=== PATIENT | male | born 1965 | race Two or more races ===

== ENCOUNTER 2019-02-02 18:24 | Inpatient (IN) | payer OTHER ==
[~2019-02-02] VITALS: Ht 170.2 cm; Wt 81.3 kg
--- NOTE | 2019-02-02 18:25 | NUR ---
ED Nurse Note: pt brought in by SOLANGE for c/O testicle pain. pt stated he was at [facility] this morning and was prescribed levaquin. however the pain got worse and worse. the pain is to his groin area, testicles, and radiates to the abdomen. pt is alert x4. ambulatory. \
[2019-02-02] MEDS ORDERED: Sodium Chloride 2,200 ML IVLG ONE (18:30)
[2019-02-02] MEDS ORDERED: Ketorolac 30mg Inj IV ONE (18:30)
--- NOTE | 2019-02-02 18:43 | NUR ---
ED Nurse Note: Urine sample sent down
--- NOTE | 2019-02-02 18:43 | NUR ---
ED Nurse Note: blood sent to lab
[2019-02-02] MEDS ORDERED: NORVASC10 MG ORAL (18:52)
[2019-02-02] MEDS ORDERED: FINASTERIDE5 MG ORAL (18:52)
[2019-02-02] MEDS ORDERED: LEVOFLOXACIN500 MG ORAL (18:52)
[2019-02-02] MEDS ORDERED: DIURIL25 MG ORAL (18:52)
[2019-02-02] MEDS ORDERED: FLOMAX0.4 MG ORAL (18:52)
[2019-02-02] MEDS ORDERED: ASPIRIN-LOW81 MG ORAL (18:52)
[2019-02-02] MEDS ORDERED: IBUPROFEN600 MG ORAL (18:52)
--- NOTE | 2019-02-02 18:58 | NUR ---
ED Nurse Note: uotrasound at bed side
--- NOTE | 2019-02-02 18:59 | Emergency Room Report ---
History of Present Illness General Chief Complaint: Abdominal Pain Source: Patient Present Illness HPI Patient was discharged from [facility] today with a diagnosis of epididymitis orchitis. He was seen for about 4 hours in the emergency department. He was told to seek help if he had fever. He started having chills and fever and increased pain in his testicle. He called paramedics. 2 months ago he was admitted to the hospital for similar condition. He alleges he never saw a urologist. He had a diagnosis of orchitis/epididymitis at that time. He was treated with antibiotics and improved. Until a few days ago he was asymptomatic. Now he complains of swelling, discoloration and severe pain in his left testicle. He also has rectal pain. He rates the pain in his testicle is 10/10. No imaging studies were done today. Patient is diabetic. Patient is hypertensive. Patient has high cholesterol. He received Tylenol, amlodipine, aspirin, atorvastatin, benzoyl peroxide, clindamycin, clotrimazole, direct diclofenac, finasteride, hydrochlorothiazide, omeprazole, sulfamethoxazole and Flomax He was discharged on Levaquin. No sore throat, chest pain, palpitations, nausea, vomiting, diarrhea, dysuria, shortness of breath, joint pain, rashes, depression, anxiety, visual changes, headache. Allergies: Coded Allergies: No Known Allergies (Unverified , 02/02/19) Patient History Past Medical History: see triage record Social History: Denies: smoking, alcohol use, drug use Social History Narrative Reviewed Nursing Documentation: PMH: Agreed; PSxH: Agreed Review of Systems All Other Systems: negative except mentioned in HPI Physical Exam Vital Signs Date Time Temp Pulse Resp B/P (MAP) Pulse Ox O2 Delivery O2 Flow Rate FiO2 02/02/19 18:19 98.4 92 17 153/100 (117) 98 Room Air Sp02 EP Interpretation: reviewed, normal General Appearance: well appearing, GCS 15, non-toxic, mild distress - With pain Head: normocephalic Eyes: bilateral eye normal inspection, bilateral eye PERRL, bilateral eye EOMI ENT: moist mucus membranes Neck: supple Respiratory: chest non-tender, lungs clear, normal breath sounds Cardiovascular #1: regular rate, rhythm Cardiovascular #2: 2+ radial (R) Gastrointestinal: normal inspection, normal bowel sounds, non tender, no mass, non-distended Genitourinary: no CVA tenderness, other - Swollen and erythematous left testicle with tenderness to palpation. No peritoneal bogginess. Musculoskeletal: back normal, normal range of motion Neurologic: alert, oriented x3, grossly normal Psychiatric: mood/affect normal - In pain Skin: warm/dry - Feels febrile, other - See genitals Medical Decision Making Diagnostic Impression: Primary Impression: Sepsis Qualified Codes: A41.9 - Sepsis, unspecified organism Additional Impressions: Orchitis Epididymitis Diabetes Qualified Codes: E11.69 - Type 2 diabetes mellitus with other specified complication Hypertension Qualified Codes: I10 - Essential (primary) hypertension ER Course Presents with left testicular pain fevers and chills. Differential includes epididymitis, torsion, orchitis, mumps, sepsis, UTI, prostatitis, Surjit's gangrene amongst others. Patient will be evaluated with EKG, ultrasound of the testicle chest x-ray and labs. The patient will be treated with IV hydration, Tylenol and Toradol. EKG without injury. White count elevated. Initial lactate elevated. Urinalysis clear. Ultrasound reveals bilateral hydroceles. No evidence of inflammation. Sepsis re-eval 19:25 - elevated WBC and lactate. Presume testicular source. Cefepime and levaquin ordered. Cap fill good. Improved pain with dilaudid. Patient still with pain and Dilaudid repeated. Discussion with patient and family regarding findings. Patient evaluated by urologist Dr. Trevino. Admitted for observation Dr. Ball. Laboratory Tests Test 02/02/19 18:35 02/02/19 20:25 White Blood Count 17.5 K/UL (4.8-10.8) H Red Blood Count 4.77 M/UL (4.70-6.10) Hemoglobin 14.7 G/DL (14.2-18.0) Hematocrit 42.1 % (42.0-52.0) Mean Corpuscular Volume 88 FL (80-99) Mean Corpuscular Hemoglobin 30.8 PG (27.0-31.0) Mean Corpuscular Hemoglobin Concent 34.9 G/DL (32.0-36.0) Red Cell Distribution Width 11.1 % (11.6-14.8) L Platelet Count 310 K/UL (150-450) Mean Platelet Volume 6.2 FL (6.5-10.1) L Neutrophils (%) (Auto) 78.7 % (45.0-75.0) H Lymphocytes (%) (Auto) 13.7 % (20.0-45.0) L Monocytes (%) (Auto) 6.8 % (1.0-10.0) Eosinophils (%) (Auto) 0.1 % (0.0-3.0) Basophils (%) (Auto) 0.7 % (0.0-2.0) Prothrombin Time 10.6 SEC (9.30-11.50) Prothrombin Time INR 1.0 (0.9-1.1) PTT 26 SEC (23-33) Urine Color Pale yellow Urine Appearance Clear Urine pH 8 (4.5-8.0) Urine Specific [place] 1.010 (1.005-1.035) Urine Protein Negative (NEGATIVE) Urine Glucose (UA) Negative (NEGATIVE) Urine Ketones Negative (NEGATIVE) Urine Blood 1+ (NEGATIVE) H Urine Nitrite Negative (NEGATIVE) Urine Bilirubin Negative (NEGATIVE) Urine Urobilinogen Normal MG/DL (0.0-1.0) Urine Leukocyte Esterase 1+ (NEGATIVE) H Urine RBC 0-2 /HPF (0 - 0) H Urine WBC 2-4 /HPF (0 - 0) Urine Squamous Epithelial Cells None /LPF (NONE/OCC) Urine Bacteria Few /HPF (NONE) Sodium Level 135 MMOL/L (136-145) L Potassium Level 3.3 MMOL/L (3.5-5.1) L Chloride Level 99 MMOL/L (98-107) Carbon Dioxide Level 23 MMOL/L (21-32) Anion Gap 13 mmol/L (5-15) Blood Urea Nitrogen 8 mg/dL (7-18) Creatinine 1.1 MG/DL (0.55-1.30) Estimate Glomerular Filtration Rate > 60 mL/min (>60) Glucose Level 118 MG/DL (74-106) H Lactic Acid Level 2.90 mmol/L (0.4-2.0) H 1.30 mmol/L (0.66-2.22) Calcium Level 9.4 MG/DL (8.5-10.1) Magnesium Level 1.5 MG/DL (1.8-2.4) L Total Bilirubin 0.6 MG/DL (0.2-1.0) Aspartate Amino Transferase (AST) 18 U/L (15-37) Alanine Aminotransferase (ALT) 24 U/L (12-78) Alkaline Phosphatase 79 U/L (46-116) Total Creatine Kinase 126 U/L (26-308) Troponin I 0.000 ng/mL (0.000-0.056) Pro-B-Type Natriuretic Peptide 10 pg/mL (0-125) Total Protein 8.1 G/DL (6.4-8.2) Albumin 3.9 G/DL (3.4-5.0) Globulin 4.2 g/dL Albumin/Globulin Ratio 0.9 (1.0-2.7) L EKG Diagnostic Results Rate: normal Rhythm: NSR ST Segments: no acute changes - QT corrected 536 Rhythm Strip Diag. Results EP Interpretation: yes Rhythm: NSR, no PVC's, no ectopy CT/MRI/US Diagnostic Results CT/MRI/US Diagnostic Results : Imaging Test Ordered: us testicle Impression hydroceles Last Vital Signs Date Time Temp Pulse Resp B/P (MAP) Pulse Ox O2 Delivery O2 Flow Rate FiO2 02/03/19 00:00 98.7 70 18 118/73 (88) 97 02/02/19 22:58 Room Air 02/02/19 22:45 98 Status: improved Disposition: PLACE IN OBSERVATION Condition: Serious Ronald Bee MD Feb 02, 2019 18:59
[2019-02-02 19:02] LABS: APPEARANCE,URINE CLEAR; BILIRUBIN, URINE NEGATIVE (NEGATIVE); COLOR,URINE PALE YELLOW; GLUCOSE, URINE (UA) NEGATIVE (NEGATIVE); KETONES,URINE NEGATIVE (NEGATIVE); LEUKOCYTE ESTERASE ,URINE 1+ (NEGATIVE); NITRITE,URINE NEGATIVE (NEGATIVE); PH,URINE 8 (4.5-8.0); PROTEIN,URINE NEGATIVE (NEGATIVE); UROBILINOGEN,URINE NORMAL MG/DL (0.0-1.0)
[2019-02-02 19:05] LABS: BASOPHILS % (AUTO) 0.7 % (0.0-2.0); EOSINOPHILS % (AUTO) 0.1 % (0.0-3.0); HEMATOCRIT 42.1 % (42.0-52.0); HEMOGLOBIN 14.7 G/DL (14.2-18.0); LYMPHOCYTES % (AUTO) 13.7 % (20.0-45.0); MEAN CORPUSCULAR VOLUME 88 FL (80-99); MONOCYTES % (AUTO) 6.8 % (1.0-10.0); NEUTROPHILS % (AUTO) 78.7 % (45.0-75.0); PLATELET COUNT 310 K/UL (150-450); RED BLOOD COUNT 4.77 M/UL (4.70-6.10); RED CELL DISTRIBUTION WIDTH 11.1 % (11.6-14.8); WHITE BLOOD COUNT 17.5 K/UL (4.8-10.8)
--- NOTE | 2019-02-02 19:06 | NUR ---
ED Nurse Note: report given to Calvin Lee RN
[2019-02-02 19:07] LABS: ANION GAP 13 mmol/L (5-15); BLOOD UREA NITROGEN 8 mg/dL (7-18); CALCIUM 9.4 MG/DL (8.5-10.1); CARBON DIOXIDE 23 MMOL/L (21-32); CHLORIDE 99 MMOL/L (98-107); CREATININE 1.1 MG/DL (0.55-1.30); POTASSIUM 3.3 MMOL/L (3.5-5.1); SODIUM 135 MMOL/L (136-145)
--- NOTE | 2019-02-02 19:10 | NUR ---
ED Nurse Note: received pt from ina quinones. patient resting in bed with no acute distress. us at bedside. iv intact and patent. ao4. vss.
[2019-02-02] MEDS ORDERED: Hydromorphone 0.5mg/0.5ml inj IVP ONE ×2 (19:15→21:15)
[2019-02-02 19:18] LABS: ALANINE AMINOTRANSFERASE 24 U/L (12-78); ALBUMIN 3.9 G/DL (3.4-5.0); ALBUMIN/GLOBULIN RATIO 0.9 (1.0-2.7); ALKALINE PHOSPHATASE 79 U/L (46-116); ASPARTATE AMINO TRANSFERASE 18 U/L (15-37); BILIRUBIN,TOTAL 0.6 MG/DL (0.2-1.0); CREATINE KINASE 126 U/L (26-308)
[2019-02-02] MEDS ORDERED: Cefepime HCl 1 GM in D5W 55 ML IVPB ONE (19:30)
[2019-02-02 19:51] VITALS: BP 144/83
--- NOTE | 2019-02-02 20:14 | Diagnostic Imaging Report ---
Indication:Scrotal pain Technique: Real time grayscale and duplex Doppler imaging of the scrotum performed. Comparison: None Findings: The size, contour, and echogenicitiy of the testis appear normal bilaterally. There is no testicular mass or evidence of torsion. There is good doppler evidence of blood flow within both testes. Epididimi are unremarkable. Bilateral hydroceles noted moderate in size. Right testis is 4.2 x 3.2 x 2.9 cm. Left testis is 4.5 x 2.1 x 2.6 cm. Impression: Bilateral hydroceles. No evidence of testicular mass or torsion
--- NOTE | 2019-02-02 20:15 | NUR ---
ED Nurse Note: lactic reflex drawn sent down to lab.
--- NOTE | 2019-02-02 20:53 | NUR ---
ED Nurse Note: CONTACTED LAB, LACTIC REFLEX PROCESSING.
[2019-02-02 22:00] VITALS: BP 134/79
[2019-02-02] MEDS ORDERED: Mylanta II UD 30ml ORAL PRN (22:00)
[2019-02-02] MEDS ORDERED: HYDROmorphone 1mg/ml Carpuject IVP PRN (22:00)
--- NOTE | 2019-02-02 22:30 | NUR ---
ED Nurse Note: telephone report given to ina quinteros
--- NOTE | 2019-02-02 22:38 | NUR ---
NURSE NOTES: Report taken from MARGOTH Bah. Endorsed from MARGOTH Alvarado.
--- NOTE | 2019-02-02 22:45 | NUR ---
TRANSFER TO FLOOR: Patient transferred to [facility] as ordered, per amarilys phillip. Report given to ina quinteros. patient in stable condition. belongings list completed with receiving rn.
[2019-02-02 22:50] VITALS: BP 116/75
[2019-02-03] VITALS: BP 118/73
--- NOTE | 2019-02-03 00:15 | Consultation ---
DATE OF CONSULTATION: 02/02/2019 UROLOGY CONSULTATION CONSULTING PHYSICIAN: J Carlos Trevino M.D. ATTENDING/REFERRING PHYSICIAN: Dr. Bee, at emergency department. CHIEF COMPLAINT/HISTORY OF PRESENT ILLNESS: I was asked by Dr. Bee to evaluate this very pleasant 53-year-old gentleman regarding history of left-sided epididymo-orchitis. Briefly, the patient had a history of the same approximately a month ago and was treated with some antibiotics. Apparently, it recurred two weeks ago and he was treated again. He presented to [facility] this morning with recurrent symptoms and was given antibiotics and discharged home. He was told to return to an emergency room if he had a fever. He started noticing fevers and chills at home and came into the hospital for evaluation of the same. PAST MEDICAL HISTORY: 1. As above. 2. BPH. MEDICATIONS: Please see the chart for current medications administration details. Briefly, the patient has received cefepime and Levaquin for antibiotic coverage. ALLERGIES: No known drug allergies. SOCIAL HISTORY: Unremarkable for tobacco, alcohol, or drug use. FAMILY HISTORY: Noncontributory. REVIEW OF SYSTEMS: A 14-system review of systems was essentially unremarkable outside what is described above. PHYSICAL EXAMINATION: GENERAL: The patient is a middle-aged gentleman, awake and alert, oriented x4, pleasant, in no obvious distress. HEENT: NC/AT. EOMI. NECK: Supple. Full range of motion. Oropharynx clear. CHEST: Within normal limits. ABDOMEN: Soft, flat, nontender, and nondistended. EXTREMITIES: Warm and well perfused. No cyanosis, clubbing, or edema. BACK: No CVA tenderness to percussion. NEUROLOGIC: Nonfocal. GENITOURINARY: Reveals a circumcised male phallus. No discharge, lesions, or curvature. The left testicle is enlarged and tender and inflamed consistent with epididymo-orchitis. The right testicle is within normal limits. There is no evidence of Surjit gangrene, abscess, hernia etc. LABORATORY DATA: White blood cell count 17.5, hematocrit 42.1, platelets 310,000. PT, PTT, INR within normal limits. Sodium 135, potassium 3.3, chloride 99, bicarbonate 23, BUN 8, creatinine 1.1, glucose 118, calcium 9.4. LFTs within normal limits. Urinalysis, specific gravity 1.010, pH 8.0. Dip test notable for 1+ occult blood, 1+ leukocyte esterase. Microanalysis with 0 to 2 red and 2 to 4 white blood cells per high-power field and few bacteria seen. DIAGNOSTIC IMAGING: Testicular ultrasound reveals moderate hydroceles bilaterally, it is otherwise unremarkable. There is no evidence of torsion or testicular mass. There is no evidence of abscess etc. ASSESSMENT AND PLAN: In summary, the patient is a 53-year-old gentleman with a history of recurrent left-sided epididymo-orchitis. He presents to the hospital with evidence of the same, accompanied by fevers at home. Physical exam reveals a febrile gentleman with an enlarged and tender left testicle consistent with epididymo-orchitis. There is no evidence of abscess, Surjit gangrene, hernia, testicular tumor etc. Laboratory data is notable for elevated white blood cell count. DIAGNOSTIC IMAGING: Reveals mild reactive hydroceles, but otherwise unremarkable. I discussed these findings with the patient and his family today at the bedside. We will admit him for IV antibiotics until he is afebrile. Once he is afebrile and is otherwise stable, he can be discharged home on oral antibiotics to complete two weeks of therapy. I will also continue him on Toradol while he is here and in an effort to decrease the inflammation. I have advised the patient that he does need outpatient follow up with urologist and Infectious Disease specialist within his health plan once he is otherwise stable. There is not appear to be an operative role for intervention at this time. Thank you for allowing me to participate in the care of this nice gentleman. Please do not hesitate to contact me with any questions that you may further have regarding his care. I will see him with you as needed. J Carlos Trevino M.D. DR: EDI JOB#: [id number] CC:
[2019-02-03] MEDS: Hydromorphone 0.5mg/0.5ml inj IVP PRN ×3 (03:56→21:58)
[2019-02-03 04:00] VITALS: BP 123/81
[2019-02-03 06:34] LABS: HEMATOCRIT 38.3 % (42.0-52.0); HEMOGLOBIN 13.1 G/DL (14.2-18.0); MEAN CORPUSCULAR VOLUME 88 FL (80-99); PLATELET COUNT 274 K/UL (150-450); RED BLOOD COUNT 4.33 M/UL (4.70-6.10); RED CELL DISTRIBUTION WIDTH 11.8 % (11.6-14.8)
[2019-02-03 06:58] LABS: WHITE BLOOD COUNT 23.2 K/UL (4.8-10.8)
[2019-02-03 07:01] LABS: ANION GAP 9 mmol/L (5-15); BLOOD UREA NITROGEN 8 mg/dL (7-18); CALCIUM 8.5 MG/DL (8.5-10.1); CARBON DIOXIDE 26 MMOL/L (21-32); CHLORIDE 103 MMOL/L (98-107); CREATININE 0.8 MG/DL (0.55-1.30); POTASSIUM 3.4 MMOL/L (3.5-5.1); SODIUM 138 MMOL/L (136-145)
--- NOTE | 2019-02-03 07:35 | NUR ---
HAND-OFF: Report given to MARGOTH Tafoya. Endorsed to patient critical value of WBC 23.2. Patient awake and stable.
--- NOTE | 2019-02-03 07:36 | NUR ---
NURSE NOTES: awake/alert/ pain scale 4/10. left testicle swollen . in no distress.
[2019-02-03 08:00] VITALS: BP 129/85
[2019-02-03] MEDS: Tamsulosin 0.4mg cap ORAL SCH (08:27)
[2019-02-03] MEDS: Docusate 100mg cap ORAL SCH ×2 (08:27→21:55)
[2019-02-03] MEDS: Heparin 5000 units/ml inj SUBQ SCH ×2 (08:31→21:58)
[2019-02-03] MEDS ORDERED: Aspirin EC 81mg tab ORAL SCH (09:00)
--- NOTE | 2019-02-03 10:35 | History and Physical ---
History of Present Illness General Date patient seen: Feb 03, 2019 Reason for Hospitalization: Abdominal Pain Present Illness HPI 53-year-old male who presented to the ER with pain in his testicles and lower abdomen. He has a history of BPH, hypertension and left-sided epididymo-orchitis. Most recently about a month ago when he was treated with antibiotics. He also tells me that in the past this infection gone to his blood. He presented to [facility] on the morning of admission and had recurrent symptoms and was given oral antibiotics and was discharged home and was told to return to the ER if he had fevers at home. When at home he had subjective fevers and was also feeling chills. He denies urinary frequency. He denies abdominal pain though has some pain on the lower left abdomen which is radiating from his left testes. He denies chest pain, syncope, shortness of breath, dizziness, lightheadedness. He is and only sexually active with one partner. Denies discharge from his penis. Past medical and surgical history: BPH, hypertension, recurrent epididymoorchitis,? Borderline diabetes Family history: Denies history of diabetes or hypertension Social history: , one sexual partner which is his . denies tobacco, alcohol, or illicit drug use Allergies: Coded Allergies: No Known Allergies (Unverified , 02/02/19) Medication History Scheduled Amlodipine Besylate (Norvasc), 10 MG ORAL DAILY, (Reported) Aspirin (Aspirin EC), 81 MG ORAL DAILY, (Reported) Finasteride (Finasteride), 5 MG ORAL DAILY, (Reported) Hydrochlorothiazide (Hydrochlorothiazide), 25 MG ORAL DAILY, (Reported) Levofloxacin (Levofloxacin*), 500 MG ORAL DAILY, (Reported) Tamsulosin HCl (Flomax), 0.4 MG ORAL DAILY, (Reported) Scheduled PRN Ibuprofen* (Motrin*), 600 MG ORAL Q6H PRN for For Pain, (Reported) Patient History Healthcare decision maker Resuscitation status Advanced Directive on File Review of Systems Constitutional: Reports: chills, fever, malaise; Denies: no symptoms, see HPI, sweats, weakness, other Eye: Denies: no symptoms, see HPI, eye pain, blurred vision, tearing, double vision, nose pain, nose congestion, acuity changes, discharge, other ENT: Denies: no symptoms, see HPI, ear pain, ear discharge, nose pain, nose congestion, throat pain, throat swelling, mouth pain, hearing loss, nasal discharge, other Respiratory: Denies: no symptoms, see HPI, cough, orthopnea, shortness of breath, stridor, wheezing, KRAMER, sputum, other Cardiovascular: Denies: no symptoms, see HPI, chest pain, edema, palpitations, syncope, PND, other Gastrointestinal: Denies: no symptoms, see HPI, abdominal pain, constipation, diarrhea, nausea, vomiting, melena, hematemesis, other Genitourinary: Reports: pain - testes, other - swelling and redness testes ; Denies: no symptoms, see HPI, discharge, dysuria, frequency, hematuria, retention, incontinence, urgency, vag bleed/dc Musculoskeletal: Denies: no symptoms, see HPI, back pain, gout, joint pain, joint swelling, muscle pain, muscle stiffness, other Skin: Denies: no symptoms, see HPI, rash, change in color, change in hair/nails , dryness, lesions, other Neurological: Denies: no symptoms, see HPI, headache, numbness, paresthesia, seizure, tingling, tremors, focal weakness, syncope, dizziness, other Hematologic/Lymphatic: Denies: no symptoms, see HPI, anemia, blood clots, easy bleeding, easy bruising, swollen glands, diathesis, other Physical Exam Physical Exam Narrative GENERAL: middle-aged male, pleasant, awake and alert oriented x4, no acute distress HEENT: NC/AT. EOMI. NECK: Supple. Full range of motion. Oropharynx clear.No JVD HEART: S1S2, RRR, no m/r/g CHEST: Clear to auscultation bilaterally, no rales, wheezings or rhonchi ABDOMEN: Soft, left lower quadrant tenderness, nondistended. EXTREMITIES: Warm and well perfused. No cyanosis, clubbing, or edema GENITOURINARY: No CVA tenderness. circumcised male phallus. No discharge, lesions, The left testicle is enlarged, tender and inflamed. The right testicle is within normal limits. No abscess. NEUROLOGIC: Grossly non focal SKIN: as above Last 24 Hour Vital Signs Date Time Temp Pulse Resp B/P (MAP) Pulse Ox O2 Delivery O2 Flow Rate FiO2 02/03/19 08:27 70 129/85 02/03/19 08:11 Room Air 02/03/19 08:00 97.6 70 22 129/85 (100) 98 02/03/19 04:00 98.4 77 18 123/81 (95) 95 02/03/19 00:00 98.7 70 18 118/73 (88) 97 02/02/19 22:58 Room Air 02/02/19 22:50 98.9 72 18 116/75 (89) 96 02/02/19 22:45 98.5 90 18 134/79 96 Room Air 98 02/02/19 22:00 98.5 90 18 134/79 96 Room Air 98 02/02/19 21:43 98.5 02/02/19 19:51 98.5 91 21 144/83 95 Room Air 98 02/02/19 19:22 98.5 02/02/19 19:21 98.5 02/02/19 19:21 98.5 02/02/19 18:25 88 17 Room Air 98 02/02/19 18:19 98.4 92 17 153/100 (117) 98 Room Air Intake and Output 02/02/19 02/03/19 19:00 07:00 Intake Total 450 ml Balance 450 ml Intake Oral 375 ml IV Total 75 ml # Voids 4 Laboratory Tests Test 02/02/19 18:35 02/02/19 20:25 02/03/19 05:05 White Blood Count 17.5 K/UL (4.8-10.8) H 23.2 K/UL (4.8-10.8) *H Red Blood Count 4.77 M/UL (4.70-6.10) 4.33 M/UL (4.70-6.10) L Hemoglobin 14.7 G/DL (14.2-18.0) 13.1 G/DL (14.2-18.0) L Hematocrit 42.1 % (42.0-52.0) 38.3 % (42.0-52.0) L Mean Corpuscular Volume 88 FL (80-99) 88 FL (80-99) Mean Corpuscular Hemoglobin 30.8 PG (27.0-31.0) 30.2 PG (27.0-31.0) Mean Corpuscular Hemoglobin Concent 34.9 G/DL (32.0-36.0) 34.2 G/DL (32.0-36.0) Red Cell Distribution Width 11.1 % (11.6-14.8) L 11.8 % (11.6-14.8) Platelet Count 310 K/UL (150-450) 274 K/UL (150-450) Mean Platelet Volume 6.2 FL (6.5-10.1) L 5.8 FL (6.5-10.1) L Neutrophils (%) (Auto) 78.7 % (45.0-75.0) H % (45.0-75.0) Lymphocytes (%) (Auto) 13.7 % (20.0-45.0) L % (20.0-45.0) Monocytes (%) (Auto) 6.8 % (1.0-10.0) % (1.0-10.0) Eosinophils (%) (Auto) 0.1 % (0.0-3.0) % (0.0-3.0) Basophils (%) (Auto) 0.7 % (0.0-2.0) % (0.0-2.0) Prothrombin Time 10.6 SEC (9.30-11.50) Prothromb Time International Ratio 1.0 (0.9-1.1) Activated Partial Thromboplast Time 26 SEC (23-33) Urine Color Pale yellow Urine Appearance Clear Urine pH 8 (4.5-8.0) Urine Specific [place] 1.010 (1.005-1.035) Urine Protein Negative (NEGATIVE) Urine Glucose (UA) Negative (NEGATIVE) Urine Ketones Negative (NEGATIVE) Urine Blood 1+ (NEGATIVE) H Urine Nitrite Negative (NEGATIVE) Urine Bilirubin Negative (NEGATIVE) Urine Urobilinogen Normal MG/DL (0.0-1.0) Urine Leukocyte Esterase 1+ (NEGATIVE) H Urine RBC 0-2 /HPF (0 - 0) H Urine WBC 2-4 /HPF (0 - 0) Urine Squamous Epithelial Cells None /LPF (NONE/OCC) Urine Bacteria Few /HPF (NONE) Sodium Level 135 MMOL/L (136-145) L 138 MMOL/L (136-145) Potassium Level 3.3 MMOL/L (3.5-5.1) L 3.4 MMOL/L (3.5-5.1) L Chloride Level 99 MMOL/L (98-107) 103 MMOL/L (98-107) Carbon Dioxide Level 23 MMOL/L (21-32) 26 MMOL/L (21-32) Anion Gap 13 mmol/L (5-15) 9 mmol/L (5-15) Blood Urea Nitrogen 8 mg/dL (7-18) 8 mg/dL (7-18) Creatinine 1.1 MG/DL (0.55-1.30) 0.8 MG/DL (0.55-1.30) Estimat Glomerular Filtration Rate > 60 mL/min (>60) > 60 mL/min (>60) Glucose Level 118 MG/DL (74-106) H 102 MG/DL (74-106) Lactic Acid Level 2.90 mmol/L (0.4-2.0) H 1.30 mmol/L (0.66-2.22) Calcium Level 9.4 MG/DL (8.5-10.1) 8.5 MG/DL (8.5-10.1) Magnesium Level 1.5 MG/DL (1.8-2.4) L Total Bilirubin 0.6 MG/DL (0.2-1.0) Aspartate Amino Transf (AST/SGOT) 18 U/L (15-37) Alanine Aminotransferase (ALT/SGPT) 24 U/L (12-78) Alkaline Phosphatase 79 U/L (46-116) Total Creatine Kinase 126 U/L (26-308) Troponin I 0.000 ng/mL (0.000-0.056) Pro-B-Type Natriuretic Peptide 10 pg/mL (0-125) Total Protein 8.1 G/DL (6.4-8.2) Albumin 3.9 G/DL (3.4-5.0) Globulin 4.2 g/dL Albumin/Globulin Ratio 0.9 (1.0-2.7) L Differential Total Cells Counted 100 Neutrophils % (Manual) 80 % (45-75) H Lymphocytes % (Manual) 10 % (20-45) L Monocytes % (Manual) 9 % (1-10) Eosinophils % (Manual) 1 % (0-3) Basophils % (Manual) 0 % (0-2) Band Neutrophils 0 % (0-8) Platelet Estimate Adequate Platelet Morphology Normal Height (Feet): 5 Height (Inches): 7.00 Weight (Pounds): 160 Medications Current Medications Medications (Trade) Dose Ordered Sig/Jerri Route PRN Reason Start Time Stop Time Status Last Admin Dose Admin Acetaminophen (Tylenol) 650 mg Q4H PRN ORAL Mild Pain (Pain Scale 1-3) 02/02/19 22:00 03/04/19 21:59 02/03/19 05:05 Al Hydroxide/Mg Hydroxide (Mylanta II) 30 ml Q6H PRN ORAL dyspepsia 02/02/19 22:00 03/04/19 21:59 Amlodipine Besylate (Norvasc) 10 mg DAILY ORAL 02/03/19 09:00 03/05/19 08:59 02/03/19 08:27 Aspirin (Ecotrin) 81 mg DAILY ORAL 02/03/19 09:00 03/05/19 08:59 02/03/19 08:26 Dextrose (Dextrose 50%) 25 ml Q30M PRN IV Hypoglycemia 02/02/19 22:00 03/04/19 21:59 Dextrose (Dextrose 50%) 50 ml Q30M PRN IV Hypoglycemia 02/02/19 22:00 03/04/19 21:59 Diphenhydramine HCl (Benadryl) 25 mg Q6H PRN ORAL Itching/Pruritis 02/02/19 22:00 03/04/19 21:59 Docusate Sodium (Colace) 100 mg EVERY 12 HOURS ORAL 02/03/19 09:00 03/05/19 08:59 02/03/19 08:27 Finasteride (Proscar) 5 mg DAILY ORAL 02/03/19 09:00 03/05/19 08:59 02/03/19 08:26 Heparin Sodium (Porcine) (Heparin 5000 units/ml) 5,000 units EVERY 12 HOURS SUBQ 02/03/19 09:00 03/05/19 08:59 02/03/19 08:31 Hydrochlorothiazide (Hydrodiuril) 25 mg DAILY ORAL 02/03/19 09:00 03/05/19 08:59 02/03/19 08:26 Hydromorphone HCl (Dilaudid) 0.5 mg Q4H PRN IVP Pain Scale (6-10) 02/02/19 22:00 02/09/19 21:59 02/03/19 03:56 Hydromorphone HCl (Dilaudid) 1 mg Q4HR PRN IVP Severe Breakthru Pain (>7) 02/02/19 22:00 02/09/19 21:59 Levofloxacin 150 ml @ 100 mls/hr Q24HRS IVPB 02/03/19 20:00 02/10/19 19:59 Ondansetron HCl (Zofran) 4 mg Q6H PRN IVP Nausea & Vomiting 02/02/19 22:00 03/04/19 21:59 Sodium Chloride 1,000 ml @ 75 mls/hr [id number] IVLG 02/02/19 22:57 03/04/19 22:56 02/02/19 22:57 Tamsulosin HCl (Flomax) 0.4 mg DAILY ORAL 02/03/19 09:00 03/05/19 08:59 02/03/19 08:27 Objective Narrative DIAGNOSTIC IMAGING: Testicular ultrasound reveals moderate hydroceles bilaterally, it is otherwise unremarkable. There is no evidence of torsion or testicular mass. There is no evidence of abscess. Urinalysis: specific gravity 1.010, pH8.0. 1+ occult blood, 1+ leukocyte esterase. Nitrite negative, 0 to 2 RBC and 2 to 4 WBC, few bacteria Assessment/Plan Status: stable Assessment/Plan: 53-year-old male with history of recurrent left-sided epididymo- orchitis, BPH and hypertension presented to the hospital with left testicular pain, fever and chills. On exam he is found to have an enlarged and very tender left testicle, without evidence of abscess ,Surjit gangrene or torsion. He has leukocytosis to 17.5, lactic acid 2.9, and a mild bump in his creatinine to 1.1. Diagnostic imaging reveals moderate hydroceles bilaterally, but otherwise unremarkable. 1. Sepsis secondary to epididymoorchitis Continue IV fluids and pain control with Toradol to reduce inflammation. IV antibiotics with levofloxacin 500 mg daily. Follow-up urine cultures Urology consult with Dr. Trevino obtained from the ER appreciated. Monitor white count and lactic acid. Check for STIs 2. Transient MELISA. Resolved. Continue IV hydration. 3. Hypertension. Would monitor blood pressure. Hold antihypertensives for now. 4.? Prediabetes. Check hemoglobin A1c. Counseled on diet and exercise. 5. BPH. Continue tamsulosin and finasteride GI ppx: not indicated VTE ppx: ambulation, SCD Code: Full code I spent 70 minutes on this encounter.> 50% spent on counseling care coordination. Time of this note does not reflect the time of Lalit Valladares M.D. Feb 03, 2019 10:35
--- NOTE | 2019-02-03 11:49 | Diagnostic Imaging Report ---
Indication: Dyspnea Comparison: None A single view chest radiograph was obtained. Findings: Cardiomediastinal appearance is within normal limits for age. The lungs are clear. Pulmonary vascularity is appropriate. The diaphragmatic contour is smooth and costophrenic angles are sharp. No pleural effusions are identified. The bones are unremarkable. Impression: No acute findings
[2019-02-03 12:00] VITALS: BP 124/80
[2019-02-03] MEDS ORDERED: Ketorolac 30mg Inj IM SCH (12:00)
--- NOTE | 2019-02-03 15:23 | NUR ---
CASE MANAGEMENT:REVIEW 53 YR OLD MALE BIBA FROM HOME CC: BACK PAIN RADIATING TO ABDOMEN AND GROIN. TESTICLE PAIN SI: SEPSIS. EPIDIDYMITIS. ORCHITIS 98.5 92 17 153/100 98% ON RA WBC+17.5 K-3.3 IS: 2L NS BOLUS TYLENOL PO IV TORADOL IV ZOFRAN IV DILAUDID X2 IV CEFEPIME IV LEVAQUIN TESTICULAR US CXR BLOOD CX : TO MED/SURG [facility]
--- NOTE | 2019-02-03 15:46 | Infectious Diseases Prog Note ---
Assessment/Plan Assessment/Plan Full consult dictated: A) 1) left epididymitis/orchitis 2) sepsis, leukocytosis 3) pmh noted 4) allergies - nkda P) 1) levofloxacin appropriate (age > 35) 2) continue tx per primary and urology 3) monitor labs 4) thank you Subjective Allergies: Coded Allergies: No Known Allergies (Unverified , 02/02/19) Objective Vital Signs Last 24 Hour Vital Signs Date Time Temp Pulse Resp B/P (MAP) Pulse Ox O2 Delivery O2 Flow Rate FiO2 02/03/19 13:29 97.6 02/03/19 12:00 99.4 71 21 124/80 (95) 99 02/03/19 11:42 97.6 02/03/19 08:27 70 129/85 02/03/19 08:11 Room Air 02/03/19 08:00 97.6 70 22 129/85 (100) 98 02/03/19 04:00 98.4 77 18 123/81 (95) 95 02/03/19 00:00 98.7 70 18 118/73 (88) 97 02/02/19 22:58 Room Air 02/02/19 22:50 98.9 72 18 116/75 (89) 96 02/02/19 22:45 98.5 90 18 134/79 96 Room Air 98 02/02/19 22:00 98.5 90 18 134/79 96 Room Air 98 02/02/19 21:43 98.5 02/02/19 19:51 98.5 91 21 144/83 95 Room Air 98 02/02/19 19:22 98.5 02/02/19 19:21 98.5 02/02/19 19:21 98.5 02/02/19 18:25 88 17 Room Air 98 02/02/19 18:19 98.4 92 17 153/100 (117) 98 Room Air Height (Feet): 5 Height (Inches): 7.00 Weight (Pounds): 160 Laboratory Tests Test 02/02/19 18:35 02/02/19 20:25 02/03/19 05:05 White Blood Count 17.5 K/UL (4.8-10.8) H 23.2 K/UL (4.8-10.8) *H Red Blood Count 4.77 M/UL (4.70-6.10) 4.33 M/UL (4.70-6.10) L Hemoglobin 14.7 G/DL (14.2-18.0) 13.1 G/DL (14.2-18.0) L Hematocrit 42.1 % (42.0-52.0) 38.3 % (42.0-52.0) L Mean Corpuscular Volume 88 FL (80-99) 88 FL (80-99) Mean Corpuscular Hemoglobin 30.8 PG (27.0-31.0) 30.2 PG (27.0-31.0) Mean Corpuscular Hemoglobin Concent 34.9 G/DL (32.0-36.0) 34.2 G/DL (32.0-36.0) Red Cell Distribution Width 11.1 % (11.6-14.8) L 11.8 % (11.6-14.8) Platelet Count 310 K/UL (150-450) 274 K/UL (150-450) Mean Platelet Volume 6.2 FL (6.5-10.1) L 5.8 FL (6.5-10.1) L Neutrophils (%) (Auto) 78.7 % (45.0-75.0) H % (45.0-75.0) Lymphocytes (%) (Auto) 13.7 % (20.0-45.0) L % (20.0-45.0) Monocytes (%) (Auto) 6.8 % (1.0-10.0) % (1.0-10.0) Eosinophils (%) (Auto) 0.1 % (0.0-3.0) % (0.0-3.0) Basophils (%) (Auto) 0.7 % (0.0-2.0) % (0.0-2.0) Prothrombin Time 10.6 SEC (9.30-11.50) Prothromb Time International Ratio 1.0 (0.9-1.1) Activated Partial Thromboplast Time 26 SEC (23-33) Urine Color Pale yellow Urine Appearance Clear Urine pH 8 (4.5-8.0) Urine Specific [place] 1.010 (1.005-1.035) Urine Protein Negative (NEGATIVE) Urine Glucose (UA) Negative (NEGATIVE) Urine Ketones Negative (NEGATIVE) Urine Blood 1+ (NEGATIVE) H Urine Nitrite Negative (NEGATIVE) Urine Bilirubin Negative (NEGATIVE) Urine Urobilinogen Normal MG/DL (0.0-1.0) Urine Leukocyte Esterase 1+ (NEGATIVE) H Urine RBC 0-2 /HPF (0 - 0) H Urine WBC 2-4 /HPF (0 - 0) Urine Squamous Epithelial Cells None /LPF (NONE/OCC) Urine Bacteria Few /HPF (NONE) Sodium Level 135 MMOL/L (136-145) L 138 MMOL/L (136-145) Potassium Level 3.3 MMOL/L (3.5-5.1) L 3.4 MMOL/L (3.5-5.1) L Chloride Level 99 MMOL/L (98-107) 103 MMOL/L (98-107) Carbon Dioxide Level 23 MMOL/L (21-32) 26 MMOL/L (21-32) Anion Gap 13 mmol/L (5-15) 9 mmol/L (5-15) Blood Urea Nitrogen 8 mg/dL (7-18) 8 mg/dL (7-18) Creatinine 1.1 MG/DL (0.55-1.30) 0.8 MG/DL (0.55-1.30) Estimat Glomerular Filtration Rate > 60 mL/min (>60) > 60 mL/min (>60) Glucose Level 118 MG/DL (74-106) H 102 MG/DL (74-106) Lactic Acid Level 2.90 mmol/L (0.4-2.0) H 1.30 mmol/L (0.66-2.22) Calcium Level 9.4 MG/DL (8.5-10.1) 8.5 MG/DL (8.5-10.1) Magnesium Level 1.5 MG/DL (1.8-2.4) L Total Bilirubin 0.6 MG/DL (0.2-1.0) Aspartate Amino Transf (AST/SGOT) 18 U/L (15-37) Alanine Aminotransferase (ALT/SGPT) 24 U/L (12-78) Alkaline Phosphatase 79 U/L (46-116) Total Creatine Kinase 126 U/L (26-308) Troponin I 0.000 ng/mL (0.000-0.056) Pro-B-Type Natriuretic Peptide 10 pg/mL (0-125) Total Protein 8.1 G/DL (6.4-8.2) Albumin 3.9 G/DL (3.4-5.0) Globulin 4.2 g/dL Albumin/Globulin Ratio 0.9 (1.0-2.7) L Differential Total Cells Counted 100 Neutrophils % (Manual) 80 % (45-75) H Lymphocytes % (Manual) 10 % (20-45) L Monocytes % (Manual) 9 % (1-10) Eosinophils % (Manual) 1 % (0-3) Basophils % (Manual) 0 % (0-2) Band Neutrophils 0 % (0-8) Platelet Estimate Adequate Platelet Morphology Normal Current Medications Medications (Trade) Dose Ordered Sig/Jerri Route PRN Reason Start Time Stop Time Status Last Admin Dose Admin Acetaminophen (Tylenol) 650 mg Q4H PRN ORAL Mild Pain (Pain Scale 1-3) 02/02/19 22:00 03/04/19 21:59 02/03/19 05:05 Al Hydroxide/Mg Hydroxide (Mylanta II) 30 ml Q6H PRN ORAL dyspepsia 02/02/19 22:00 03/04/19 21:59 Amlodipine Besylate (Norvasc) 10 mg DAILY ORAL 02/03/19 09:00 03/05/19 08:59 02/03/19 08:27 Dextrose (Dextrose 50%) 25 ml Q30M PRN IV Hypoglycemia 02/02/19 22:00 03/04/19 21:59 Dextrose (Dextrose 50%) 50 ml Q30M PRN IV Hypoglycemia 02/02/19 22:00 03/04/19 21:59 Diphenhydramine HCl (Benadryl) 25 mg Q6H PRN ORAL Itching/Pruritis 02/02/19 22:00 03/04/19 21:59 Docusate Sodium (Colace) 100 mg EVERY 12 HOURS ORAL 02/03/19 09:00 03/05/19 08:59 02/03/19 08:27 Finasteride (Proscar) 5 mg DAILY ORAL 02/03/19 09:00 03/05/19 08:59 02/03/19 08:26 Heparin Sodium (Porcine) (Heparin 5000 units/ml) 5,000 units EVERY 12 HOURS SUBQ 02/03/19 09:00 03/05/19 08:59 02/03/19 08:31 Hydromorphone HCl (Dilaudid) 0.5 mg Q4H PRN IVP Pain Scale (6-10) 02/02/19 22:00 02/09/19 21:59 02/03/19 11:12 Hydromorphone HCl (Dilaudid) 1 mg Q4HR PRN IVP Severe Breakthru Pain (>7) 02/02/19 22:00 02/09/19 21:59 Ketorolac Tromethamine (Toradol 30mg) 15 mg Q6H IM 02/03/19 12:00 02/08/19 11:59 02/03/19 12:59 Levofloxacin 150 ml @ 100 mls/hr Q24HRS IVPB 02/03/19 20:00 02/10/19 19:59 Ondansetron HCl (Zofran) 4 mg Q6H PRN IVP Nausea & Vomiting 02/02/19 22:00 03/04/19 21:59 Sodium Chloride 1,000 ml @ 75 mls/hr [id number] IVLG 02/02/19 22:57 03/04/19 22:56 02/03/19 12:33 Tamsulosin HCl (Flomax) 0.4 mg DAILY ORAL 02/03/19 09:00 03/05/19 08:59 02/03/19 08:27 Marek Sarkar MD Feb 03, 2019 15:46
[2019-02-03 16:00] VITALS: BP 106/69
[2019-02-03] MEDS: Ketorolac 30mg Inj IV SCH ×2 (18:16→23:26)
[2019-02-03] MEDS ORDERED: cefTRIAXone 1 GM in D5W 55 ML IVPB SCH ×2 (18:30→20:00)
--- NOTE | 2019-02-03 18:56 | NUR ---
NURSE NOTES: quiet in bed. in no distres. in stable condition.
--- NOTE | 2019-02-03 19:12 | NUR ---
HAND-OFF: Report given to Milady FRIEDMAN RN.
--- NOTE | 2019-02-03 19:20 | NUR ---
NURSE NOTES: Report taken from AMRGOTH Tafoya. Patient is awake and in bed, family at bedside. A&Ox4. No signs of distress on room air. Having moderate complaint of pain, specifically with palpation and certain movements, 4/10. Lt testicle is swollen and red, continue to monitor. IV sites c/d/i and patent, Lt side running NS @ 75mls/hr. Skin is intact. Bed in lowest position, call light within reach.
[2019-02-03 20:00] VITALS: BP 112/72
--- NOTE | 2019-02-03 21:15 | Consultation ---
DATE OF CONSULTATION: 02/03/2019 INFECTIOUS DISEASE CONSULTATION CONSULTING PHYSICIAN: Marek Sarkar M.D. ATTENDING PHYSICIAN: Brice Ball M.D. REFERRING PHYSICIAN: Dr. Lalit Frazier. REASON FOR CONSULTATION: Left-sided epididymitis/orchitis. CHIEF COMPLAINT: The patient's chief complaint coming in to the hospital is left-sided epididymitis, orchitis, possible sepsis, and elevated white count. HISTORY OF PRESENT ILLNESS: This is a very pleasant 53-year-old male, who has a history of what sounds like epididymitis orchitis in the past, who over the last several days, I believe, since Saturday developed swelling in his left testicle area. The patient currently has left-sided epididymitis and orchitis. The patient is seen by Urology and was started on Levaquin 750 mg q.24 hours. Infectious Disease consultation is requested. The patient could be septic with elevated white count. There is currently no fevers. REVIEW OF SYSTEMS: GENITOURINARY: Main issue in the review of systems is left-sided testicular pain, swelling, and redness. No current fevers or chills. HEAD AND NECK: No head pain or neck pain. CARDIAC: No chest pain. GASTROINTESTINAL: No nausea, vomiting, or diarrhea. GENITOURINARY: No other dysuria or frequency. PULMONARY: No congestion or shortness of breath. PAST MEDICAL HISTORY: The patient's past medical history includes the following. The patient has a past medical history of what sounds like orchitis and epididymitis in the past. He has history of BPH and hypertension. He has a history of a transient MELISA, possible prediabetes. The patient has diabetes mellitus. MEDICATIONS: Upon reviewing the MAR, he is on the following medications. He is on Levaquin 750 mg daily IV, he is on ketorolac, he is on amlodipine, he is on finasteride, Flomax, , and Proscar. He is on acetaminophen, hydromorphone, Zofran, and diphenhydramine. Outside medications were noted and reconciliated. ALLERGIES: No known drug allergies. SOCIAL HISTORY: Negative for smoking, alcohol, drug abuse. FAMILY HISTORY: Noncontributory. PHYSICAL EXAMINATION: VITAL SIGNS: Temperature is 97.6, pulse rate 71, respiratory rate 21, blood pressure 124/80, and saturation 99%. GENERAL: Alert, responsive, and oriented x3, in no acute distress. HEAD AND NECK: Oral exam, no thrush. Eye exam, no icterus. Neck is supple. No JVD. Normocephalic. HEART: Regular. No gallop or murmur. ABDOMEN: Soft. Positive bowel sounds. Nontender. LUNGS: Clear bilaterally with no rhonchi or rales. SKIN: No rash. MUSCULOSKELETAL: No effusion. Legs are without cellulitis. No septic arthritis. PERIPHERAL VASCULAR: No gangrene. NEUROLOGIC: Intact. LINE SITES: Without phlebitis. GENITOURINARY: He has a left-sided swelling and redness of the left testicle consistent with epididymitis, orchitis. No CVA tenderness. LABORATORY DATA: White count 23.2 and hemoglobin 13.1. Creatinine 0.8. UA had 2 to 4 white cells. IMAGING STUDIES: Testicular ultrasound showed bilateral hydroceles. No evidence of testicular mass or torsion. Chest x-ray showed no acute findings. ASSESSMENT AND PLAN: 1. The patient has left-sided epididymitis/orchitis or epididymal orchitis. At this time, because of the patient's age, he is over 53 years of age, he does not have any real significant risk factors for chlamydia or Neisseria infection. I agree with the Levaquin 750 mg q.24 hours for gram-negative coverage including E. coli and other gram-negative pathogens. Continue Levaquin for left-sided epididymitis/orchitis. Monitor leukocytosis and possible sepsis. Monitor the patient clinically. Monitor left-sided swelling, redness, epididymitis, orchitis. Continue Levaquin for now. 2. Elevated white count. Rule out sepsis. 3. BPH. 4. Hypertension. 5. Prediabetes. 6. History of epididymo-orchitis in the past. 7. Possible diabetes and hypertension treatment per primary. 8. BPH. Treatment per Urology. 9. Transient MELISA. 10. Continue treatment per primary consultants. 11. No known allergies. 12. Social history is negative. 13. Family history is noncontributory. 14. MAR is noted. 15. Case discussed with RN. 16. Case discussed with the patient and his . Marek Sarkar M.D. DR: CLARENCE JOB#: [id number] CC:
[2019-02-04] VITALS: BP 121/81
[2019-02-04 03:55] VITALS: BP 119/75
[2019-02-04 05:36] LABS: HEMATOCRIT 34.8 % (42.0-52.0); HEMOGLOBIN 11.9 G/DL (14.2-18.0); MEAN CORPUSCULAR VOLUME 88 FL (80-99); PLATELET COUNT 248 K/UL (150-450); RED BLOOD COUNT 3.96 M/UL (4.70-6.10); RED CELL DISTRIBUTION WIDTH 11.8 % (11.6-14.8); WHITE BLOOD COUNT 18.4 K/UL (4.8-10.8)
[2019-02-04 05:45] LABS: ANION GAP 8 mmol/L (5-15); BLOOD UREA NITROGEN 6 mg/dL (7-18); CALCIUM 8.5 MG/DL (8.5-10.1); CARBON DIOXIDE 28 MMOL/L (21-32); CHLORIDE 103 MMOL/L (98-107); CREATININE 0.8 MG/DL (0.55-1.30); POTASSIUM 3.4 MMOL/L (3.5-5.1); SODIUM 139 MMOL/L (136-145)
[2019-02-04] MEDS: Ketorolac 30mg Inj IV SCH ×4 (05:54→23:56)
--- NOTE | 2019-02-04 07:20 | NUR ---
HAND-OFF: Report given to MARGOTH Tafoya. patient is awake and stable.
--- NOTE | 2019-02-04 07:21 | NUR ---
NURSE NOTES: awake/alert. pain scale 4/10. left testicle still swollen. in no diastress.
[2019-02-04 08:00] VITALS: BP 123/78
[2019-02-04] MEDS: Tamsulosin 0.4mg cap ORAL SCH (08:28)
[2019-02-04] MEDS: Docusate 100mg cap ORAL SCH ×2 (08:29→20:39)
[2019-02-04] MEDS: Heparin 5000 units/ml inj SUBQ SCH ×2 (08:32→20:39)
--- NOTE | 2019-02-04 09:41 | NUR ---
NURSE NOTES: K 3.4. RESULT CALLED TO DR Lisa DOMINGUEZ LEFT MESSAGE TO RETURN CALL.
--- NOTE | 2019-02-04 11:44 | General Progress Note ---
Assessment/Plan Status: stable Assessment/Plan: 53-year-old male with history of recurrent left-sided epididymo- orchitis, BPH and hypertension presented to the hospital with left testicular pain, fever and chills. On exam he is found to have an enlarged and very tender left testicle, without evidence of abscess ,Surjit gangrene or torsion. He has leukocytosis to 17.5, lactic acid 2.9, and a mild bump in his creatinine to 1.1. Diagnostic imaging reveals moderate hydroceles bilaterally, but otherwise unremarkable. 1. Sepsis secondary to epididymoorchitis- resolving Continue IV fluids and pain control with Toradol to reduce inflammation. IV antibiotics with levofloxacin 500 mg daily. Follow-up urine cultures Urology consult with Dr. Trevino obtained from the ER appreciated. ID consult: Dr. Gotti, appreciated Monitor white count and lactic acid. Low risk for STIs 2. Transient MELISA. Resolved. Continue IV hydration. 3. Hypertension. Would monitor blood pressure. Hold antihypertensives for now. 4.? Prediabetes. hemoglobin A1c: 6.2 . Counseled on diet and exercise. 5. BPH. Continue tamsulosin and finasteride GI ppx: not indicated VTE ppx: ambulation, SCD Code: Full code I spent 40 minutes on this encounter.> 50% spent on counseling care coordination. Time of this note does not reflect the time of encounter Subjective Date patient seen: Feb 04, 2019 ROS Limited/Unobtainable: No Constitutional: Denies: no symptoms, chills, diaphoresis, fever, malaise, weakness, other HEENT: Denies: no symptoms, eye pain, blurred vision, tearing, double vision, ear pain, ear discharge, nose pain, nose congestion, throat pain, throat swelling, mouth pain, mouth swelling, other Cardiovascular: Denies: no symptoms, chest pain, edema, irregular heart rate, lightheadedness, palpitations, syncope, other Respiratory: Denies: no symptoms, cough, orthopnea, shortness of breath, SOB with excertion, SOB at rest, sputum, stridor, wheezing, other Gastrointestinal/Abdominal: Denies: no symptoms, abdomen distended, abdominal pain, black stools, tarry stools, blood in stool, constipated, diarrhea, difficulty swallowing, nausea, poor appetite, poor fluid intake, rectal bleeding , vomiting, other Genitourinary: Reports: other - left testes swelling; Denies: no symptoms, burning, discharge, frequency, flank pain, hematuria, incontinence, pain, urgency Neurologic/Psychiatric: Denies: no symptoms, anxiety, depressed, emotional problems, headache, numbness, paresthesia, pre-existing deficit, seizure, tingling, tremors, weakness, other Endocrine: Denies: no symptoms, excessive sweating, flushing, intolerance to cold, intolerance to heat, increased hunger, increased thirst, increased urine, unexplained weight gain, unexplained weight loss, other Hematologic/Lymphatic: Denies: no symptoms, anemia, easy bleeding, easy bruising, other Allergies: Coded Allergies: No Known Allergies (Unverified , 02/02/19) Subjective afebrile no acute events wbc trending down he feels a bit better but still significant swelling L testicle Objective Last 24 Hour Vital Signs Date Time Temp Pulse Resp B/P (MAP) Pulse Ox O2 Delivery O2 Flow Rate FiO2 02/04/19 08:28 61 123/78 02/04/19 08:05 Room Air 02/04/19 08:00 98.1 61 20 123/78 (93) 96 02/04/19 03:55 98.5 61 19 119/75 (90) 97 02/04/19 00:00 98.7 62 20 121/81 (94) 95 02/03/19 21:00 Room Air 02/03/19 20:00 98.2 69 19 112/72 (85) 99 02/03/19 18:46 97.6 02/03/19 16:34 97.6 02/03/19 16:00 98.6 68 21 106/69 (81) 99 02/03/19 13:29 97.6 02/03/19 12:00 99.4 71 21 124/80 (95) 99 02/03/19 11:42 97.6 Intake and Output 02/03/19 02/04/19 19:00 07:00 Intake Total 2825 ml 1830 ml Balance 2825 ml 1830 ml Intake Oral 2000 ml 1700 ml IV Total 825 ml 130 ml # Voids 3 3 Laboratory Tests 02/04/19 04:35: White Blood Count 18.4H, Red Blood Count 3.96L, Hemoglobin 11.9L, Hematocrit 34.8L, Mean Corpuscular Volume 88, Mean Corpuscular Hemoglobin 30.1, Mean Corpuscular Hemoglobin Concent 34.3, Red Cell Distribution Width 11.8, Platelet Count 248, Mean Platelet Volume 6.2L, Neutrophils (%) (Auto) , Lymphocytes (%) ( Auto) , Monocytes (%) (Auto) , Eosinophils (%) (Auto) , Basophils (%) (Auto) , Differential Total Cells Counted 100, Neutrophils % (Manual) 84H, Lymphocytes % (Manual) 9L, Monocytes % (Manual) 4, Eosinophils % (Manual) 2, Basophils % ( Manual) 1, Band Neutrophils 0, Platelet Estimate Adequate, Platelet Morphology Normal, Sodium Level 139, Potassium Level 3.4L, Chloride Level 103, Carbon Dioxide Level 28, Anion Gap 8, Blood Urea Nitrogen 6L, Creatinine 0.8, Estimat Glomerular Filtration Rate > 60, Glucose Level 110H, Hemoglobin A1c 6.2H, Calcium Level 8.5 Height (Feet): 5 Height (Inches): 7.00 Weight (Pounds): 179 Objective GENERAL: middle-aged male, pleasant, awake and alert oriented x4, no acute distress HEENT: NC/AT. EOMI. NECK: Supple. Full range of motion. Oropharynx clear.No JVD HEART: S1S2, RRR, no m/r/g CHEST: Clear to auscultation bilaterally, no rales, wheezings or rhonchi ABDOMEN: Soft, left lower quadrant tenderness, nondistended. EXTREMITIES: Warm and well perfused. No cyanosis, clubbing, or edema GENITOURINARY: No CVA tenderness. circumcised male phallus. No discharge, lesions, The left testicle is enlarged, tender and inflamed. The right testicle is within normal limits. No abscess. NEUROLOGIC: Grossly non focal SKIN: as above Lalit Frazier M.D. Feb 04, 2019 11:44
[2019-02-04 12:00] VITALS: BP 150/73
--- NOTE | 2019-02-04 13:28 | NUR ---
*-* INSURANCE *-* ALL CLINICALS AND REVIEWS HAVE BEEN FAXED TO: ROSEANNE/TOMER P- [phone] [phone]...REVIEW/CLINICAL
--- NOTE | 2019-02-04 13:34 | NUR ---
CASE MANAGEMENT:REVIEW SI: SEPSIS. EPIDIDYMITIS. ORCHITIS 98.1 61 20 123/78 96% ON RA WBC+18.4 K-3.4 RBC 3.96 H/H 11.9/ 34.8 BUN+ 6 IS: IV LEVOFLOXACIN IV TORADOL Q6HR HEPARIN SQ Q12HR NORVASC PO QD PROSCAR PO QD IV DILAUDID Q4 PRN : TO MED/S[facility]G [facility] DCP: TO RETURN HOME
[2019-02-04 16:00] VITALS: BP 135/75
--- NOTE | 2019-02-04 16:13 | NUR ---
NURSE NOTES: dr mcallister called re: pt's home reconciliation meds. left message to return call.
[2019-02-04] MEDS ORDERED: Tubing IV Secondary IV ONE (18:17)
--- NOTE | 2019-02-04 19:00 | NUR ---
NURSE NOTES: RESTING. IN NO DISTRESS. CONDITION STABLE.
--- NOTE | 2019-02-04 19:25 | NUR ---
NURSE NOTES: Report taken from MARGOTH Tafoya. Patient is awake and in bed, family at bedside. A&Ox4. No signs of distress on room air. Minimal complaint of pain in the lower abdomen and left testicle, 08/20. Skin intact. IV sites c/d/i and both sites hep locked, antibiotics to be hung during shift. patient able to ambulate by self. Bed in lowest position, call light within reach.
--- NOTE | 2019-02-04 19:29 | NUR ---
HAND-OFF: Report given to Milady FRIEDMAN RN.
[2019-02-04 20:00] VITALS: BP 133/84
[2019-02-05 04:00] VITALS: BP 146/75
[2019-02-05] MEDS: Ketorolac 30mg Inj IV SCH ×4 (05:41→23:41)
[2019-02-05 06:40] LABS: BASOPHILS % (AUTO) 0.7 % (0.0-2.0); HEMATOCRIT 37.8 % (42.0-52.0); HEMOGLOBIN 12.8 G/DL (14.2-18.0); LYMPHOCYTES % (AUTO) 22.5 % (20.0-45.0); MEAN CORPUSCULAR VOLUME 89 FL (80-99); MONOCYTES % (AUTO) 6.5 % (1.0-10.0); NEUTROPHILS % (AUTO) 67.2 % (45.0-75.0); PLATELET COUNT 343 K/UL (150-450); RED BLOOD COUNT 4.24 M/UL (4.70-6.10); RED CELL DISTRIBUTION WIDTH 12.2 % (11.6-14.8); WHITE BLOOD COUNT 10.9 K/UL (4.8-10.8)
[2019-02-05 06:55] LABS: ANION GAP 11 mmol/L (5-15); BLOOD UREA NITROGEN 7 mg/dL (7-18); CALCIUM 9.1 MG/DL (8.5-10.1); CARBON DIOXIDE 25 MMOL/L (21-32); CHLORIDE 105 MMOL/L (98-107); CREATININE 0.7 MG/DL (0.55-1.30); POTASSIUM 3.6 MMOL/L (3.5-5.1); SODIUM 141 MMOL/L (136-145)
--- NOTE | 2019-02-05 07:28 | NUR ---
HAND-OFF: Report given to MARGOTH Tafoya. PAtient is awake and in bed, VS stable.
[2019-02-05 08:00] VITALS: BP 132/83
[2019-02-05] MEDS: Docusate 100mg cap ORAL SCH ×2 (08:27→21:19)
[2019-02-05] MEDS: Aspirin EC 81mg tab ORAL SCH (08:27)
[2019-02-05] MEDS: Tamsulosin 0.4mg cap ORAL SCH (08:28)
[2019-02-05] MEDS: Heparin 5000 units/ml inj SUBQ SCH ×2 (08:31→21:19)
--- NOTE | 2019-02-05 11:40 | General Progress Note ---
Assessment/Plan Status: stable, progressing Assessment/Plan: 53-year-old male with history of recurrent left-sided epididymo- orchitis, BPH and hypertension presented to the hospital with left testicular pain, fever and chills. On exam he is found to have an enlarged and very tender left testicle, without evidence of abscess ,Surjit gangrene or torsion. He has leukocytosis to 17.5, lactic acid 2.9, and a mild bump in his creatinine to 1.1. Diagnostic imaging reveals moderate hydroceles bilaterally, but otherwise unremarkable. 1. Sepsis secondary to epididymoorchitis- resolving Continue IV fluids and pain control with Toradol to reduce inflammation. IV antibiotics with levofloxacin 500 mg daily. blood cultures negative to date Urology consult with Dr. Trevino obtained from the ER appreciated. ID consult: Dr. Gotti, appreciated Monitor white count and lactic acid. Low risk for STIs 2. Transient MELISA. Resolved. Continue IV hydration. 3. Hypertension. Would monitor blood pressure. Hold antihypertensives for now. 4.? Prediabetes. hemoglobin A1c: 6.2 . Counseled on diet and exercise. 5. BPH. Continue tamsulosin and finasteride GI ppx: not indicated VTE ppx: ambulation, SCD Code: Full code disposition: one more day IV antibiotics before discharge. Patient advised to see a urologist in his network. I spent 40 minutes on this encounter.> 50% spent on counseling care coordination. Time of this note does not reflect the time of encounter Subjective Date patient seen: Feb 05, 2019 ROS Limited/Unobtainable: No Constitutional: Denies: no symptoms, chills, diaphoresis, fever, malaise, weakness, other HEENT: Denies: no symptoms, eye pain, blurred vision, tearing, double vision, ear pain, ear discharge, nose pain, nose congestion, throat pain, throat swelling, mouth pain, mouth swelling, other Cardiovascular: Denies: no symptoms, chest pain, edema, irregular heart rate, lightheadedness, palpitations, syncope, other Respiratory: Denies: no symptoms, cough, orthopnea, shortness of breath, SOB with excertion, SOB at rest, sputum, stridor, wheezing, other Gastrointestinal/Abdominal: Denies: no symptoms, abdomen distended, abdominal pain, black stools, tarry stools, blood in stool, constipated, diarrhea, difficulty swallowing, nausea, poor appetite, poor fluid intake, rectal bleeding , vomiting, other Genitourinary: Reports: burning, pain, other - testes swollen ; Denies: no symptoms, discharge, frequency, flank pain, hematuria, incontinence, urgency Neurologic/Psychiatric: Denies: no symptoms, anxiety, depressed, emotional problems, headache, numbness, paresthesia, pre-existing deficit, seizure, tingling, tremors, weakness, other Endocrine: Denies: no symptoms, excessive sweating, flushing, intolerance to cold, intolerance to heat, increased hunger, increased thirst, increased urine, unexplained weight gain, unexplained weight loss, other Hematologic/Lymphatic: Denies: no symptoms, anemia, easy bleeding, easy bruising, other Allergies: Coded Allergies: No Known Allergies (Unverified , 02/02/19) Subjective afebrile no acute events wbc trending down he feels a bit better but still significant swelling L testicle Objective Last 24 Hour Vital Signs Date Time Temp Pulse Resp B/P (MAP) Pulse Ox O2 Delivery O2 Flow Rate FiO2 02/05/19 08:28 60 132/83 02/05/19 08:02 Room Air 02/05/19 08:00 98.6 02/05/19 08:00 97.5 60 18 132/83 (99) 95 02/05/19 04:00 98.6 60 19 146/75 (98) 96 02/04/19 21:00 Room Air 02/04/19 20:00 98.0 72 20 133/84 (100) 97 02/04/19 18:43 97.1 02/04/19 16:00 97.1 66 18 135/75 (95) 95 02/04/19 12:00 97.4 59 20 150/73 (98) 95 Intake and Output 02/04/19 02/05/19 19:00 07:00 Intake Total 975 ml Balance 975 ml Intake Oral 300 ml IV Total 675 ml # Voids 2 2 Laboratory Tests 02/05/19 05:20: White Blood Count 10.9H, Red Blood Count 4.24L, Hemoglobin 12.8L, Hematocrit 37.8L, Mean Corpuscular Volume 89, Mean Corpuscular Hemoglobin 30.2, Mean Corpuscular Hemoglobin Concent 33.9, Red Cell Distribution Width 12.2, Platelet Count 343, Mean Platelet Volume 5.9L, Neutrophils (%) (Auto) 67.2, Lymphocytes ( %) (Auto) 22.5, Monocytes (%) (Auto) 6.5, Eosinophils (%) (Auto) 3.0, Basophils (%) (Auto) 0.7, Sodium Level 141, Potassium Level 3.6, Chloride Level 105, Carbon Dioxide Level 25, Anion Gap 11, Blood Urea Nitrogen 7, Creatinine 0.7, Estimat Glomerular Filtration Rate > 60, Glucose Level 93, Calcium Level 9.1 Height (Feet): 5 Height (Inches): 7.00 Weight (Pounds): 179 Objective GENERAL: middle-aged male, pleasant, awake and alert oriented x4, no acute distress HEENT: NC/AT. EOMI. NECK: Supple. Full range of motion. Oropharynx clear.No JVD HEART: S1S2, RRR, no m/r/g CHEST: Clear to auscultation bilaterally, no rales, wheezings or rhonchi ABDOMEN: Soft, left lower quadrant tenderness, nondistended. EXTREMITIES: Warm and well perfused. No cyanosis, clubbing, or edema GENITOURINARY: No CVA tenderness. circumcised male phallus. No discharge, lesions, The left testicle is enlarged, tender and inflamed (improving since admission). The right testicle is within normal limits. No abscess. NEUROLOGIC: Grossly non focal SKIN: as above Lalit Frazier M.D. Feb 05, 2019 11:40
[2019-02-05 12:00] VITALS: BP 123/80
--- NOTE | 2019-02-05 13:27 | NUR ---
CASE MANAGEMENT:REVIEW 02/05/19 SI: SEPSIS. EPIDIDYMITIS. ORCHITIS 98.6 60 18 132/83 95% RA WBC+10.9 RBC 4.24 H/H 12.8/ 37.8 IS: IV LEVOFLOXACIN IV TORADOL Q6HR HEPARIN SQ Q12HR NORVASC PO QD PROSCAR PO QD IV DILAUDID Q4 PRN ASPIRIN PO QD : TO MED/SURG 3 [facility] DCP: TO RETURN HOME
[2019-02-05 16:00] VITALS: BP 117/77
--- NOTE | 2019-02-05 19:24 | NUR ---
HAND-OFF: Report given to Joanne MONTGOMERY RN.
[2019-02-05 20:00] VITALS: BP 137/85
--- NOTE | 2019-02-05 20:32 | Infectious Diseases Prog Note ---
Assessment/Plan Assessment/Plan ASSESSMENT AND PLAN: 1. left epididymitis/orchitis, sepsis, leukocytosis - levofloxacin - day # 4, plan on 10 day tx course - clinically improved, still some swelling but less pain - leukocytosis resolving - monitor labs 2. Elevated white count. Rule out sepsis. 3. BPH. 4. Hypertension. 5. Prediabetes. 6. History of epididymo-orchitis in the past. 7. Possible diabetes and hypertension treatment per primary. 8. BPH. Treatment per Urology. 9. Transient MELISA. 10. Continue treatment per primary consultants. 11. No known allergies. 12. Social history is negative. 13. Family history is noncontributory. 14. MAR is noted. 15. Case discussed with RN. 16. Case discussed with the patient and his . Subjective Constitutional: Denies: fever HEENT: Denies: congestion Respiratory: Denies: shortness of breath Cardiovascular: Denies: chest pain Gastrointestinal/Abdominal: Denies: nausea, vomiting, diarrhea Genitourinary: Reports: other - less testicular pain ; Denies: dysuria Neurologic: Denies: headache Psychiatric: Denies: depression Skin: Denies: rash Hematologic: Denies: bleeding Musculoskeletal: Denies: pain Allergies: Coded Allergies: No Known Allergies (Unverified , 02/02/19) Objective Vital Signs Last 24 Hour Vital Signs Date Time Temp Pulse Resp B/P (MAP) Pulse Ox O2 Delivery O2 Flow Rate FiO2 02/05/19 17:56 97.4 02/05/19 16:00 97.4 61 18 117/77 (90) 97 02/05/19 12:00 97.6 62 20 123/80 (94) 95 02/05/19 08:28 60 132/83 02/05/19 08:02 Room Air 02/05/19 08:00 98.6 02/05/19 08:00 97.5 60 18 132/83 (99) 95 02/05/19 04:00 98.6 60 19 146/75 (98) 96 02/04/19 21:00 Room Air Height (Feet): 5 Height (Inches): 7.00 Weight (Pounds): 179 General Appearance: no acute distress HEENT: normocephalic, atraumatic, anicteric, mucous membranes moist Respiratory/Chest: lungs clear, normal breath sounds, no respiratory distress, no accessory muscle use Cardiovascular: normal peripheral pulses, regular rhythm, no gallop/murmur, no JVD Abdomen: normal bowel sounds, soft, non tender, no organomegaly, non distended Genitourinary: other - less left testicular pain and swelling, still some swelling noted Extremities: no cyanosis Skin: no rash Neurologic/Psychiatric: pre fabricator II-XII grossly normal, alert, oriented x 3, responsive Lymphatic: no neck adenopathy Musculoskeletal: no effusion Objective Testicular ultrasound: Findings: The size, contour, and echogenicitiy of the testis appear normal bilaterally. There is no testicular mass or evidence of torsion. There is good doppler evidence of blood flow within both testes. Epididimi are unremarkable. Bilateral hydroceles noted moderate in size. Right testis is 4.2 x 3.2 x 2.9 cm. Left testis is 4.5 x 2.1 x 2.6 cm. Impression: Bilateral hydroceles. No evidence of testicular mass or torsion Microbiology Date/Time Source Procedure Growth Status 02/03/19 08:10 Blood Blood Culture - Preliminary NO GROWTH AFTER 24 HOURS Resulted Microbiology Date/Time Source Procedure Growth Status 02/03/19 08:10 Blood Blood Culture - Preliminary NO GROWTH AFTER 24 HOURS Resulted 02/03/19 08:00 Blood Blood Culture - Preliminary NO GROWTH AFTER 24 HOURS Resulted Laboratory Tests Test 02/05/19 05:20 White Blood Count 10.9 K/UL (4.8-10.8) H Red Blood Count 4.24 M/UL (4.70-6.10) L Hemoglobin 12.8 G/DL (14.2-18.0) L Hematocrit 37.8 % (42.0-52.0) L Mean Corpuscular Volume 89 FL (80-99) Mean Corpuscular Hemoglobin 30.2 PG (27.0-31.0) Mean Corpuscular Hemoglobin Concent 33.9 G/DL (32.0-36.0) Red Cell Distribution Width 12.2 % (11.6-14.8) Platelet Count 343 K/UL (150-450) Mean Platelet Volume 5.9 FL (6.5-10.1) L Neutrophils (%) (Auto) 67.2 % (45.0-75.0) Lymphocytes (%) (Auto) 22.5 % (20.0-45.0) Monocytes (%) (Auto) 6.5 % (1.0-10.0) Eosinophils (%) (Auto) 3.0 % (0.0-3.0) Basophils (%) (Auto) 0.7 % (0.0-2.0) Sodium Level 141 MMOL/L (136-145) Potassium Level 3.6 MMOL/L (3.5-5.1) Chloride Level 105 MMOL/L (98-107) Carbon Dioxide Level 25 MMOL/L (21-32) Anion Gap 11 mmol/L (5-15) Blood Urea Nitrogen 7 mg/dL (7-18) Creatinine 0.7 MG/DL (0.55-1.30) Estimat Glomerular Filtration Rate > 60 mL/min (>60) Glucose Level 93 MG/DL (74-106) Calcium Level 9.1 MG/DL (8.5-10.1) Current Medications Medications (Trade) Dose Ordered Sig/Jerri Route PRN Reason Start Time Stop Time Status Last Admin Dose Admin Acetaminophen (Tylenol) 650 mg Q4H PRN ORAL Mild Pain (Pain Scale 1-3) 02/02/19 22:00 03/04/19 21:59 02/05/19 07:30 Al Hydroxide/Mg Hydroxide (Mylanta II) 30 ml Q6H PRN ORAL dyspepsia 02/02/19 22:00 03/04/19 21:59 Amlodipine Besylate (Norvasc) 10 mg DAILY ORAL 02/03/19 09:00 03/05/19 08:59 02/05/19 08:28 Aspirin (Ecotrin) 81 mg DAILY ORAL 02/05/19 09:00 03/07/19 08:59 02/05/19 08:27 Dextrose (Dextrose 50%) 25 ml Q30M PRN IV Hypoglycemia 02/02/19 22:00 03/04/19 21:59 Dextrose (Dextrose 50%) 50 ml Q30M PRN IV Hypoglycemia 02/02/19 22:00 03/04/19 21:59 Diphenhydramine HCl (Benadryl) 25 mg Q6H PRN ORAL Itching/Pruritis 02/02/19 22:00 03/04/19 21:59 Docusate Sodium (Colace) 100 mg EVERY 12 HOURS ORAL 02/03/19 09:00 03/05/19 08:59 02/05/19 08:27 Finasteride (Proscar) 5 mg DAILY ORAL 02/03/19 09:00 03/05/19 08:59 02/05/19 08:28 Heparin Sodium (Porcine) (Heparin 5000 units/ml) 5,000 units EVERY 12 HOURS SUBQ 02/03/19 09:00 03/05/19 08:59 02/05/19 08:31 Hydromorphone HCl (Dilaudid) 0.5 mg Q4H PRN IVP Pain Scale (6-10) 02/02/19 22:00 02/09/19 21:59 02/03/19 21:58 Hydromorphone HCl (Dilaudid) 1 mg Q4HR PRN IVP Severe Breakthru Pain (>7) 02/02/19 22:00 02/09/19 21:59 Ketorolac Tromethamine (Toradol 30mg) 15 mg Q6HR IV 02/03/19 18:00 02/08/19 17:59 02/05/19 17:26 Levofloxacin (Levaquin) 750 mg QHS ORAL 02/05/19 21:00 02/10/19 19:59 Ondansetron HCl (Zofran) 4 mg Q6H PRN IVP Nausea & Vomiting 02/02/19 22:00 03/04/19 21:59 Tamsulosin HCl (Flomax) 0.4 mg DAILY ORAL 02/03/19 09:00 03/05/19 08:59 02/05/19 08:28 Marek Sarkar MD Feb 05, 2019 20:32
--- NOTE | 2019-02-05 21:45 | NUR ---
NURSE NOTE Met pt in room with a lot of family members at bed side. A/O x4, pt is able to let needs be known. Patient states pain is under control at the moment. VS wnl, breathing pattern is normal, unlabored and even. All due 2100 meds given. Bed at lowest level. Call light within reach. Pt will continue to be monitored.
--- NOTE | 2019-02-05 23:14 | General Progress Note ---
Progress Note Progress Note No events. Feeling better with less pain. AFVSS PE- abd soft, NT, ND - L testicle with sig decreased TTP and less induration Ext WWP Labs - WBC down to 10.9 from peak of 23 A/P- Epididymo-orchitis w/o abscess, Surjit's etc. Improved/ resolving on Levaquin Cont 10-14 days abx total b/t IV and PO therapy OK for d/c from standpoint Available prn J Carlos Trevino M.D. Feb 05, 2019 23:14
[2019-02-06 00:29] VITALS: BP 128/79
[2019-02-06 04:00] VITALS: BP_SYST 133; BP_SYST 145; BP_DIAS 88; BP_DIAS 91
[2019-02-06] MEDS: Ketorolac 30mg Inj IV SCH ×2 (05:07→13:31)
[2019-02-06 07:08] LABS: BASOPHILS % (AUTO) 1.3 % (0.0-2.0); EOSINOPHILS % (AUTO) 4.3 % (0.0-3.0); HEMATOCRIT 39.3 % (42.0-52.0); HEMOGLOBIN 13.4 G/DL (14.2-18.0); LYMPHOCYTES % (AUTO) 24.6 % (20.0-45.0); MEAN CORPUSCULAR VOLUME 89 FL (80-99); MONOCYTES % (AUTO) 6.1 % (1.0-10.0); NEUTROPHILS % (AUTO) 63.8 % (45.0-75.0); PLATELET COUNT 367 K/UL (150-450); RED BLOOD COUNT 4.41 M/UL (4.70-6.10); RED CELL DISTRIBUTION WIDTH 11.2 % (11.6-14.8); WHITE BLOOD COUNT 10.9 K/UL (4.8-10.8)
[2019-02-06 07:09] LABS: ALANINE AMINOTRANSFERASE 40 U/L (12-78); ALBUMIN/GLOBULIN RATIO 0.7 (1.0-2.7); ALKALINE PHOSPHATASE 94 U/L (46-116); ANION GAP 10 mmol/L (5-15); ASPARTATE AMINO TRANSFERASE 18 U/L (15-37); BILIRUBIN,TOTAL 0.3 MG/DL (0.2-1.0); BLOOD UREA NITROGEN 8 mg/dL (7-18); CALCIUM 9.4 MG/DL (8.5-10.1); CARBON DIOXIDE 27 MMOL/L (21-32); CHLORIDE 102 MMOL/L (98-107); CREATININE 0.9 MG/DL (0.55-1.30); POTASSIUM 3.7 MMOL/L (3.5-5.1); SODIUM 138 MMOL/L (136-145)
--- NOTE | 2019-02-06 07:18 | NUR ---
NURSES NOTE: Report given to MARGOTH Quintana
[2019-02-06 08:00] VITALS: BP 137/90
--- NOTE | 2019-02-06 08:39 | NUR ---
NURSE NOTES: Pt awake in bed scrotums are swollen, rt side with greater appearance of swelling. Denies pain at this time states he does not have difficulty umlauting. Current plan will be followed Addendum: 02/06/19 at 1524 by Lilian Colbert RN urinating
[2019-02-06 09:53] VITALS: BP 137/90
[2019-02-06] MEDS: Aspirin EC 81mg tab ORAL SCH (09:53)
[2019-02-06] MEDS: Docusate 100mg cap ORAL SCH (09:53)
[2019-02-06] MEDS: Tamsulosin 0.4mg cap ORAL SCH (09:53)
[2019-02-06] MEDS: Hydromorphone 0.5mg/0.5ml inj IVP PRN (09:54)
[2019-02-06] MEDS: Heparin 5000 units/ml inj SUBQ SCH (09:55)
[2019-02-06] MEDS ORDERED: LEVOFLOXACIN500 MG ORAL (10:09)
--- NOTE | 2019-02-06 10:10 | Discharge Instructions ---
Discharge Instructions Discharge Instructions Diet: 2 GM sodium (low sodium) Activity: resume normal activities Follow Up Orders Take antibiotics. Levofloxacin for 10 days total Ibuprofen as needed for inflammation Follow up with Urologist in network For Congestive Heart Failure Reminder Report to your physician any weight gain of 5 pounds or more in one week. Lalit Frazier M.D. Feb 06, 2019 10:10
--- NOTE | 2019-02-06 10:19 | Discharge Summary ---
Discharge Summary Hospital Course Date of Admission Feb 02, 2019 at 21:23 Date of Discharge 02/06/2019 Admitting Diagnosis ORCHITIS HPI Blu Bustos is a 53 year old male who was admitted on Feb 02, 2019 at 21: 23 for Orchitis Consultations Urology: Dr. Trevino ID: Dr. Gotti Procedures Ultrasound testes Hospital Course 53-year-old male with history of recurrent left-sided epididymo- orchitis, BPH and hypertension presented to the hospital with left testicular pain, fever and chills. On exam he is found to have an enlarged and very tender left testicle, without evidence of abscess ,Surjit gangrene or torsion. He had leukocytosis to 17.5, lactic acid 2.9, and a mild bump in his creatinine to 1.1. Diagnostic imaging revealed moderate hydroceles bilaterally , but otherwise unremarkable. 1. Sepsis secondary to epididymoorchitis- sepsis resolved. s/p IV fluids and pain control with Toradol to reduce inflammation. IV antibiotics with levofloxacin 500 mg daily. Will continue total 14 days (IV + PO) blood cultures negative to date Urology consult with Dr. Trevino obtained from the ER appreciated. ID consult: Dr. Gotti, appreciated Monitor white count and lactic acid. both normal now Low risk for STIs 2. Transient MELISA. Resolved. 3. Hypertension. Would monitor blood pressure. Hold antihypertensives for now. 4.? Prediabetes. hemoglobin A1c: 6.2 . Counseled on diet and exercise. 5. BPH. Continue tamsulosin and finasteride GI ppx: not indicated VTE ppx: ambulation, SCD Code: Full code disposition: Home. Patient advised to see a urologist in his network. On exam erythema and swelling left testes improved. He is in no distress. Will be discharged. He will tale Levofloxacin for 10 more days. He will follow with urologist in network I spent 30 minutes on this encounter.> 50% spent on counseling care coordination. Time of this note does not reflect the time of encounter Discharge Medications Continued Medications: Amlodipine Besylate (Norvasc) 10 Mg Tablet 10 MG ORAL DAILY, TAB Aspirin (Aspirin EC) 81 Mg Tablet. 81 MG ORAL DAILY, TAB Finasteride (Finasteride) 5 Mg Tablet 5 MG ORAL DAILY, #30 TAB 0 Refills Hydrochlorothiazide (Hydrochlorothiazide) 50 Mg Tablet 25 MG ORAL DAILY, #10 TAB 0 Refills Ibuprofen* (Motrin*) 600 Mg Tablet 600 MG ORAL Q6H PRN for For Pain, #30 TAB 0 Refills Levofloxacin (Levofloxacin*) 500 Mg Tablet 500 MG ORAL DAILY for 10 Days, #10 TAB (This prescription has been renewed) Tamsulosin HCl (Flomax) 0.4 Mg Cap.er.24h 0.4 MG ORAL DAILY, CAP Discharge Condition Upon Discharge: stable Discharge Disposition Patient was discharged to home Discharge Diagnoses: (1) Sepsis (2) Orchitis (3) Epididymitis (4) MELISA (acute kidney injury) (5) BPH (benign prostatic hyperplasia) (6) Hypertension Discharge Instructions Discharge Instructions Activity: resume normal activities Lalit Frazier M.D. Feb 06, 2019 10:19
--- NOTE | 2019-02-06 13:00 | NUR ---
NURSE NOTES: Pt discharged . Dr Lazo here earlier in shift and gave clearance. Provided pt with prescription for antibiotics. Pharmacy called and stated that pt already had an order for ANTIBIOTICS. Pt denied receiving prescription. Irving spoke to pharmacy which stated a prescription was filled om 02/02/19. Returned to room and informed of the cost due to a recent prescription. Pt said he had the antibiotic at home and will finish what he has first. IV removed . Discharge information given. Per Dr Lazo pt to follow up with urologist. Belonging with pt. Escorted with wheelchair . Stable conditions
--- NOTE | 2019-02-06 15:33 | NUR ---
*-* INSURANCE *-* ALL CLINICALS AND REVIEWS HAVE BEEN FAXED TO: ROSEANNE/TOMER P- [phone] F- [phone]...REVIEW/CLINICAL
== END 2019-02-06 13:50 | disposition home or self-care (01) | DRG 720 ==
LOC: EDBD 18:24 → EMR 19:00 → 3E 21:23 → OBSVTOIN 21:23 → EDBEDREQ 21:51 → 3E 02-05 20:29
DX: A41.9 Sepsis, unspecified organism (principal); N17.9 Acute kidney failure, unspecified; N45.3 Epididymo-orchitis; I10 Essential (primary) hypertension; R73.03 Prediabetes; N40.0 Benign prostatic hyperplasia without lower urinary tract symptoms; N43.3 Hydrocele, unspecified
CPT/HCPCS: 36415; 71045; 76870; 80048; 80053; 81003; 82550; 83036; 83605; 83735; 83880; 84484; 85007; 85025; 85610; 85730; 87040; 93005; 96361; 96365; 96368; 96375; 96376; 99285; J2405; J8499